=== PATIENT | female | born 1990 | race Caucasian/White ===

== ENCOUNTER 2025-08-13 14:33 | Outpatient (CLI) | payer BC, SELFPAY ==
[2025-08-13 22:18] LABS: Chlamydia DNA Amplified* NOT DETECTED (No Detected); GC DNA Amplified* NOT DETECTED (No Detected)
== END 2025-08-13 14:34 | disposition home or self-care (01) ==
PROVIDERS: Visit Provider Advanced Practice Midwife
DX: Z34.91 Encounter for supervision of normal pregnancy, unspecified, first trimester (principal)
CPT/HCPCS: 82784; 83020; 83021; 85660; 86231; 86258; 86364; 86592; 86703; 86704; 86706; 86762; 86787; 86803; 86850; 86900; 86901; 87086; 87340; 87491; 87591

== ENCOUNTER 2025-09-10 10:50 | Outpatient (CLI) | payer BC, SELFPAY | END 2025-09-10 10:51 | disposition home or self-care (01) | LOC: NFLDREF 09-13 12:22 | PROVIDERS: Visit Provider Midwife | DX: Z34.91 Encounter for supervision of normal pregnancy, unspecified, first trimester (principal) | CPT/HCPCS: 86706 ==